=== PATIENT | female | born 1970 | race Caucasian/White ===

== ENCOUNTER 2022-06-28 12:34 | Emergency (ER) | payer MEDICAID, SELFPAY ==
[2022-06-28 12:42] VITALS: BP 127/76; PULSE 91; RESP 18; TEMP 36.5; O2SAT 97
--- NOTE | 2022-06-28 13:38 | W.ED.GENAD ---
Discharge Plan Disposition Patient Disposition: Home Condition: Stable Discharge Details Clinical Impression: Encounter for medication refill Primary Care Provider: Minh Flaherty ED Provider: Montse Diaz Home Meds and New Rx's Prescriptions: Continued buprenorphine HCl 8 mg Tablet, Sublingual 24 mg SUBLINGUAL DAILY Discharge Instructions Instructions: Buprenorphine/Naloxone (Into the mouth) Additional Instructions: Call [facility] at [phone] for possible dispensation of your Suboxone until you follow-up with your scheduled appointment with [facility] next week. You can also consider follow-up with [facility] clinic for dispensation of your suboxone as indicated. You can call their number at [phone] to schedule and confirm any follow up appointments. Return immediately to the emergency department if you develop any worsening or new concerning symptoms such as persistent fevers, persistent vomiting, difficulty breathing or any other concerns. Discharge Data Discharge Date/Time-TO BE ENTERED AT DEPARTURE: 06/28/22 14:22 Discharge Physician: Montse Diaz Medical Decision Making 52-year-old female presents with request for Suboxone. She recently moved from [place] and states she cannot return to her addiction treatment program there and has a new appointment with [facility] on July 05 but needs Suboxone until then. Vitals within normal limits. Patient appears comfortable and nontoxic. She demonstrates no signs of withdrawal. Case discussed with pharmacist Yelena states that we cannot dispense Suboxone if patient does not just demonstrate any symptoms of withdrawal. She is required to follow-up with the [place] [facility]. I discussed with Desmond Constantino from the [facility] clinic as well as Dr. Baca and they will try to accommodate patient in the next few days. They were given patient's information. Patient is agreeable with plan. Prior to discharge, Dr. Baca called stating that patient can call [facility] at [phone] and they can potentially dispense Suboxone quicker than follow-up with [facility] or [facility]. Nursing staff had attempted to provide this information to patient but she had eloped from the ED without her discharge paperwork. Medical Records Medical records reviewed: Yes I reviewed the patient's medical records. HPI General Mode of arrival: ambulatory. Date/Time Provider Initiated Documentation: 06/28/22 12:46. Limitations to Documentation: no limitations. Information obtained by: patient. HPI Narrative: Patient is a 52-year-old female who presents with request for Suboxone. Patient states she recently moved from [place] to [facility] and does not have an appointment with [facility] until July 05. Patient states she has been without a full dose of Suboxone for the past few days. She states she has been taking smaller incremental doses of suboxone the last of which was this morning. Patient denies any symptoms of withdrawal including fever, headache, chest pain, difficulty breathing, abdominal pain, nausea, vomiting or diarrhea. Related Data Home Medications Medication Instructions Recorded Confirmed buprenorphine HCl 8 mg sublingual 24 mg sublingual DAILY 06/28/22 06/28/22 tablet Allergies Allergy/AdvReac Type Severity Reaction Status Date / Time No Known Allergies Allergy Unverified 06/28/22 12:47 General Stated Complaint: GenMedical JAMIN: 4 Review of Systems All systems reviewed & are unremarkable except as noted in HPI and below Constitutional Constitutional: Reports as per HPI, Denies chills and Denies fever(s) Eyes Eyes: Denies blurry vision ENT Ears, Nose, Mouth, and Throat: Denies dizziness, Denies sore throat and Denies throat swelling Cardiovascular Cardiovascular: Denies chest pain and Denies dyspnea Respiratory Respiratory: Denies cough and Denies dyspnea Gastrointestinal Gastrointestinal: Denies abdominal pain, Denies diarrhea and Denies vomiting Genitourinary Genitourinary: Denies hematuria and Denies dysuria Musculoskeletal Musculoskeletal: Denies back pain and Denies numbness Integumentary/Breasts Skin/Breast: Denies lesions and Denies rash Neurologic Neurologic: Denies dizziness, Denies localized weakness and Denies numbness Allergic/Immunologic Allergic/Immunologic: Denies throat swelling PFSH All Active Problems (Updated 06/28/22 @ 14:00 by Montse Diaz DO) Encounter for medication refill (Acute) Medical History (Updated 06/28/22 @ 14:00 by Montse Diaz DO) Narcotic abuse in remission Social History Smoking/Tobacco Use Status: Current every day Tobacco Type: cigarettes Smoking risk assessment performed?: Yes Alcohol Intake: never Drug use: Current Sobriety Substance use type: does not use Do you feel safe at home: Yes Do you feel safe in your relationship?: Yes Exam Const General: cooperative, healthy appearing and no acute distress HENMT Head: normal to inspection Mouth: oral mucosae normal Eyes General: appearance normal, both eyes and all related structures Neck Neck: normal visual inspection Resp Effort & Inspection: normal respiratory effort and able to speak in complete sentences Cardio Rate: regular rate Skin General skin exam: no rashes or lesions noted Neuro General: patient alert, patient awake and patient oriented x3 Motor: muscle tone normal throughout Extrem General: normal to inspection and full ROM Psych Appearance: grossly normal Affect: normal affect Course Vital Signs Vital signs: Vital Signs Temperature 97.7 F 06/28/22 12:42 Pulse 91 H 06/28/22 12:42 Respiratory Rate 18 06/28/22 12:42 Blood Pressure 127/76 06/28/22 12:42 Pulse Oximetry 97 06/28/22 12:42 Temperature 97.7 F 06/28/22 12:42 Temperature Source Temporal Artery Scan 06/28/22 12:42 Pulse 91 H 06/28/22 12:42 Respiratory Rate 18 06/28/22 12:42 Respiratory Effort Non-Labored 06/28/22 12:46 Blood Pressure 127/76 06/28/22 12:42 Blood Pressure Position Supine 06/28/22 12:42 Pulse Oximetry 97 06/28/22 12:42 Oxygen Delivery Method Room Air 06/28/22 12:42 Oxygen Flow Rate 0 06/28/22 12:42 Pain Level 0 06/28/22 12:42
--- NOTE | 2022-06-28 13:43 | NUR.NOTE ---
Nursing Note: Facesheet faxed to [facility] for further care.
== END 2022-06-28 14:22 | disposition home or self-care (01) ==
PROVIDERS: Emergency Provider Physician Assistant; PCP Internal Medicine
DX: F11.20 Opioid dependence, uncomplicated (principal)
CPT/HCPCS: 99281

== ENCOUNTER 2023-05-26 11:19 | Emergency (ER) | payer MEDICAID, SELFPAY ==
[2023-05-26 11:33] VITALS: BP 106/70; PULSE 76; RESP 14; TEMP 37; O2SAT 98
[2023-05-26 11:39] VITALS: BP 106/70; PULSE 76; RESP 14; TEMP 37; O2SAT 98
[2023-05-26 11:44] LABS: Source Nasal/Nares
[2023-05-26 12:39] LABS: COVID-19 PCR POSITIVE (Negative)
--- NOTE | 2023-05-27 06:15 | NUR.NOTE ---
Patient discharged prior to Covid test result, she called emergency dept for test result. Result given to patient after proper identification.Nursing Note:
== END 2023-05-26 12:24 | disposition left against medical advice (07) ==
PROVIDERS: Emergency Medicine; Emergency Provider Registered Nurse Emergency; PCP Internal Medicine
DX: R51.9 Headache, unspecified (principal); R11.2 Nausea with vomiting, unspecified; R10.9 Unspecified abdominal pain; U07.1 COVID-19; Z53.21 Procedure and treatment not carried out due to patient leaving prior to being seen by health care provider
CPT/HCPCS: 87635; 99282

== ENCOUNTER → 2023-10-16 02:47 | Outpatient (CLI) | payer MEDICAID, SELFPAY ==
--- NOTE | 2023-10-16 | DI.RAD_ITS ---
Exam(s) XR SHOULDER LT COMPLETE 2+V EXAM: XR SHOULDER LT COMPLETE 2+V CLINICAL HISTORY: LT SHOULDER PAIN, M25.512,IMPINGEMENT SIGNS,? ARTHRITIS,? OLD FX. TECHNIQUE: 2D digital imaging was performed. Three views. COMPARISON: No exams were available for comparison FINDINGS: BONES: No acute fracture is present. No bony destructive lesion is seen. JOINTS: No dislocation present. No significant degenerative changes. SOFT TISSUE: Normal. IMPRESSION: Unremarkable radiographs of the left shoulder. DATA REPOSITORY: RADIATION DOSE DELIVERED:
--- NOTE | 2023-10-16 | DI.RAD_ITS ---
Exam(s) XR CERVICAL SPINE COMP 4-5V EXAM: XR CERVICAL SPINE COMP 4-5V CLINICAL HISTORY: WEAKNESS LT UPPER LIMB,M62.81,. TECHNIQUE: 2D digital imaging was performed. Five views were performed. COMPARISON: No exams were available for comparison FINDINGS: BONES: No fracture or destructive lesion. Vertebral bodies are unremarkable. Degenerative changes o f the facet joints. Bilateral neural foraminal narrowing at C5-6. DISKS: Moderate narrowing of the C5-6 disc space and small endplate osteophytes. The remaining inter vertebral disc spaces are maintained. ALIGNMENT: Cervical spinal alignment is within normal limits. The odontoid and atlantoaxial articulat ions are normal. SOFT TISSUE: Normal. The lung apices are clear. IMPRESSION: Degenerative changes C5-6 causing bilateral neural foraminal narrowing. DATA REPOSITORY: RADIATION DOSE DELIVERED:
== END ==
PROVIDERS: PCP Internal Medicine; Visit Provider Student in an Organized Health Care Education/Training Program
DX: M62.81 Muscle weakness (generalized) (principal); M47.812 Spondylosis without myelopathy or radiculopathy, cervical region; M50.322 Other cervical disc degeneration at C5-C6 level; M25.512 Pain in left shoulder
CPT/HCPCS: 72050; 73030